=== PATIENT | male | born 1985 | race Two or more races ===

== ENCOUNTER → 2018-04-18 | Emergency (ER) | payer OTHER ==
[~2018-04-18] VITALS: Ht 167.6 cm; Wt 81.6 kg
[~2018-04-18] MED LIST: XANAX0.25 MG; ZANTAC150 M1
== END | disposition home or self-care (01) ==
LOC: ER 17:29
DX: K80.20 Calculus of gallbladder without cholecystitis without obstruction (principal); K92.0 Hematemesis

== ENCOUNTER → 2018-10-31 | Emergency (ER) | payer OTHER ==
[~2018-10-31] VITALS: Ht 167.6 cm; Wt 69.9 kg
== END | disposition left against medical advice (07) ==
LOC: ER 03:47
DX: Z53.20 Procedure and treatment not carried out because of patient's decision for unspecified reasons (principal)